=== PATIENT | male | born 1995 | race American Indian/Alaskan Native ===

== ENCOUNTER 2021-11-27 08:51 | Emergency (ER) | payer SELFPAY ==
[~2021-11-27] VITALS: Ht 180.3 cm; Wt 77.1 kg
[~2021-11-27 08:51] MED LIST: AZITHROMYCIN250 MG PO; IBUPROFEN600 MG PO; NORCO 5-325 TA1 EACH PO; NYQUIL D COLD295 ML PO; PREDNISONE20 MG PO; PROAIR HFA8.5 GM INH
[2021-11-27] MEDS ORDERED: OXYCODONE HCL5 MG PO (13:38)
[2021-11-27] MEDS ORDERED: ONDANSETRON ODT8 MG PO (13:38)
== END 2021-11-27 13:55 | disposition home or self-care (01) ==
LOC: ED 08:51
DX: K85.90 Acute pancreatitis without necrosis or infection, unspecified (principal); F10.10 Alcohol abuse, uncomplicated; F17.200 Nicotine dependence, unspecified, uncomplicated
CPT/HCPCS: 76705; 80053; 83690; 85025; 96374; 96375; 96376; 99284-25; J1170; J2405; J7030

== ENCOUNTER 2022-04-29 12:46 | Inpatient (IN) | payer OTHER ==
[~2022-04-29] VITALS: Ht 180.3 cm; Wt 73.5 kg
[~2022-04-29 12:46] MED LIST changes: +ONDANSETRON ODT8 MG PO; +OXYCODONE HCL5 MG PO
--- NOTE | 2022-04-29 20:00 | NUR ---
RECEIVED REPORT FROM DAY SHIFT RN. PT LAYING IN BED IN NO ACUTE DISTRESS. PT ASKING FOR PRN PAIN MEDS REPORTS PAIN A 8 TO RT UPPER QUAD. VSS RESP EVEN AND UNLABORED. CALL LIGHT WITHIN REACH WILL CONTINUE TO MONITOR.
--- NOTE | 2022-04-29 21:53 | NUR ---
Pt resting in bed in no acute distress. Resp even and unlabored, no s/sx of any distress. Call light within reach will continue to monitor.
--- NOTE | 2022-04-29 22:15 | NUR ---
PT COMPLAINING ABOUT PAIN AND NAUSEA. PT REPORTS PAIN A 8 TO ABDOMEN AND BACK . PRN PAIN MEDS AND ANTIEMTICS GIVEN. HOT BACK GIVEN WELL. CALL LIGHT WITHIN REACH WILL CONTINEU TO MONITOR.
--- NOTE | 2022-04-29 22:43 | NUR ---
PT DESATING INTO THE HIGH 80'S 88-89. PLACED ON A 2 L NC SATS AT 98% CALL LIGHT WITHIN REACH WILL CONTINUE TO MONITOR
--- NOTE | 2022-04-30 00:50 | NUR ---
PT ASKING FOR MORE PRN PAIN MEDS. REPORTS PAIN A 8 TO AB AND BACK . WILL MEDICATE WHEN ABLE TO . PT AWARE ITS NOT TIME YET BUT WILL TAKE IN WHEN WE ARE ABLE TO. HOT PACK AND ICE WATER GIVEN. NO S,SX OF ANY DISTRESS NOTED. CALL LIGHT WITHIN REACH WILL CONTINUE TO MONITOR
--- NOTE | 2022-04-30 01:20 | NUR ---
prn pain medication for 8/10 pain and new warm pack. call light within reach.
--- NOTE | 2022-04-30 05:01 | NUR ---
PT CONTINUES TO COMPLAIN OF PAIN , MEDICATING PRN PAIN MEDS AND ANITEMETIC. HOT PACK AND KPAD GIVEN TO PT. RESP EVEN AND UNLABORED. CALL LIGHT WITHIN REACH . WILL CONTINUE TO MONITOR
--- NOTE | 2022-04-30 07:40 | NUR ---
Dr Lorenzo rounded on Pt. The plan is to spread the IV Dilaudid more (Q6H) and transition to PO pain meds at some point. Pt might be transferring to the floor in the afternoon as well.
--- NOTE | 2022-04-30 08:18 | NUR ---
Pt is resting in bed, watching TV. He feels sleepy now. He stated he didn't sleep last night. Reports minimal abdominal pain. Dilaudid is not due for 2 more hours. Pt made aware. He said he'd go back to sleep.
--- NOTE | 2022-04-30 09:30 | NUR ---
Pt reported pain 8/10 - abdominal. No N/V. Oxi 5 mg given.
--- NOTE | 2022-04-30 11:16 | NUR ---
Pt is sleeping. IVF at 200 ml/hr. RA. No signs of distress. Will continue to monitor.
--- NOTE | 2022-04-30 12:15 | NUR ---
Pt tolerated lunch fine. No reports of N/V. Pain improved after Oxi. Pt stated that PO medication is lasting much longer than IV Dilaudid.
--- NOTE | 2022-04-30 13:00 | NUR ---
ASSESSMENT DONE. C/O PAIN 05/05. DID NOT REQUEST PAIN MEDICATION AT THIS TIME.
--- NOTE | 2022-04-30 14:00 | NUR ---
RESTING, NO DISTRESS NOTED. IVF PATEINT AND INFUSING AT 125 ML/HR.
--- NOTE | 2022-04-30 17:15 | NUR ---
CCU transfer. Dx: Pancreatitis. LR at 125 ml/hr. RA. Independent in the room. AOx4.
--- NOTE | 2022-04-30 17:22 | NUR ---
PATIENT SITTING UP IN BED FOR CLEAR LIQUID DINNER. UPDATE REPORT GIVEN TO MED-SURG. OXYCODONE 5 MG GIVEN FOR ABD PAIN.
--- NOTE | 2022-04-30 17:50 | NUR ---
PT TRANSFERRED OVER TO MED SURG ROOM 115, AMBULATED OVER WITH RN STANDBY, STEADY ON FEET AND TOLERATED WELL. PRIMARY RN AND APPLICATION TECHNICAL DESIGNER IN ROOM TO ACCEPT PT. FRESH WARM PACK GIVEN PER REQUEST.
--- NOTE | 2022-04-30 18:39 | NUR ---
IVF discontinued. Diet changed to low fat. Pt was able to order turkey box. Pain subsided (Oxi given at 17:14).
--- NOTE | 2022-04-30 19:37 | NUR ---
REPORT RECEIVED FROM DAY SHIFT RN. PT SITTING UP IN BED ALERT AND ORIENTED EATING SANDWICH. REPORTS PAIN IS TOLERABLE. SERVICE COORDINATOR IN ROOM TO SET UP FOR SHOWER. WHITE BOARD UPDATED. CALL LIGHT IN REACH.
--- NOTE | 2022-04-30 20:40 | NUR ---
EVENING ASSESSMENT COMPLETE. SCHEDULED MEDS ADMIN PER EMAR. PT REPORTS ABD PAIN /10. PRN FOR PAIN ADMIN. PT REPORTS NICOTINE CRAVINGS. NIO FOR NICOTINE LOZENGE PLACED. LOZENGE PROVIDED, PT DID NOT LIKE THE TASTE AND SPIT OUT. STATES HE WILL "WAIT TO SMOKE UNTIL TOMORROW". NICOTINE PATCH FELL OFF IN SHOWER. PT DENIES NAUSEA. WARM COMPRESS PROVIDED FOR ABD AND BACK. PT WITH NO S/SX OF ETOH WITHDRAWAL. PT DENIES QUESTIONS OR CONCERS. CALL LIGHT IN REACH.
--- NOTE | 2022-05-01 00:02 | NUR ---
PT RESTING IN BED WITH EYES CLOSED. RESPIRATIONS EVEN. CALL LIGHT IN REACH.
--- NOTE | 2022-05-01 02:07 | NUR ---
PT RESTING IN BED WITH EYES CLOSED. RESPIRATIONS EVEN. CALL LIGHT IN REACH.
--- NOTE | 2022-05-01 04:17 | NUR ---
PT RESTING WITH EYES CLOSED. RESPIRATIONS EVEN. URINAL EMPTIED OF 400 ML CLEAR YELLOW URINE.
--- NOTE | 2022-05-01 06:00 | NUR ---
CALL LIGHT ANSWERED. FRESH WATER PROVIDED. VS AND I&O COMPLETE. PT DENIES PAIN OR NAUSEA. NO S/SX ETOH WITHDRAWAL. DENIES NEEDS. CALL LIGHT IN REACH.
--- NOTE | 2022-05-01 07:20 | NUR ---
Bedside report received from DANO RN. Pt is awake, resting in bed. Pain is minimal. Pt reported he slept much better last night. No concerns at this time.
--- NOTE | 2022-05-01 08:22 | NUR ---
Pt will be discharging sometime this morning. Pt had medium size BM this am. No need for Miralax. Pain is WNL.
[2022-05-01] MEDS ORDERED: ONDANSETRON HCL4 MG PO (08:46)
--- NOTE | 2022-05-01 09:08 | NUR ---
MED REC COMPLETE
--- NOTE | 2022-05-02 19:04 | EKG ---
[facility] [address] [place] [address] Signed Sinus tachycardia Right atrial enlargement Borderline ECG No previous ECGs available Confirmed by EVAN OBRIEN MD ([id number]) on 05/02/2022 7:04:41 PM Electronically Signed By: EVAN OBRIEN MD 05/02/22 1904 PATIENT NAME: LIBERTYMANDY Electrocardiogram DATE OF : [birth year] PHYSICIAN: EVAN OBRIEN MD REPORT #: [id number] REPORT IS CONFIDENTIAL AND NOT TO BE RELEASED WITHOUT AUTHORIZATION
== END 2022-05-01 09:25 | disposition home or self-care (01) | DRG 439 ==
LOC: ED 12:46 → CCU 16:49 → MS 04-30 17:45
PROVIDERS: ADMIT Hospitalist; ATTEND Hospitalist
DX: K85.20 Alcohol induced acute pancreatitis without necrosis or infection (principal); F10.239 Alcohol dependence with withdrawal, unspecified; F17.210 Nicotine dependence, cigarettes, uncomplicated; Z20.822 Contact with and (suspected) exposure to COVID-19; Z71.6 Tobacco abuse counseling; M72.2 Plantar fascial fibromatosis
CPT/HCPCS: 36415; 80048; 80053; 81001; 83690; 85025; 87502; 93005; 93010; 96361; 96374; 96375; 96376; 99285-25; C9803; G0480; J1170; J1650; J2060; J2405; J2550; J3411; J7030; J7121; U0003

== ENCOUNTER 2022-06-27 04:53 | Inpatient (IN) | payer OTHER ==
[~2022-06-27] VITALS: Ht 177.8 cm; Wt 75.0 kg
[~2022-06-27 04:53] MED LIST changes: +ONDANSETRON HCL4 MG PO
[2022-06-27] MEDS ORDERED: FISH OIL 500 M1 EAC4 PO (09:04)
[2022-06-27] MEDS ORDERED: ARTHRITIS PAIN650 MG PO (09:05)
[2022-06-29] MEDS ORDERED: PROCHLORPERAZIN10 MG PO (12:23)
[2022-06-29] MEDS ORDERED: NICOTINE1 EAC2 TD (12:24)
[2022-06-29] MEDS ORDERED: OXYCODONE HCL5 MG PO (12:26)
[2022-06-29] MEDS ORDERED: FAMOTIDINE20 MG PO (12:26)
== END 2022-06-29 12:50 | disposition home or self-care (01) | DRG 439 ==
LOC: ED 04:53 → MS 04:55
PROVIDERS: ADMIT Internal Medicine; ATTEND Internal Medicine
DX: K85.20 Alcohol induced acute pancreatitis without necrosis or infection (principal); E87.1 Hypo-osmolality and hyponatremia; E83.42 Hypomagnesemia; F17.210 Nicotine dependence, cigarettes, uncomplicated; F10.20 Alcohol dependence, uncomplicated; E86.1 Hypovolemia; Z20.822 Contact with and (suspected) exposure to COVID-19; Z98.890 Other specified postprocedural states; Z79.899 Other long term (current) drug therapy
CPT/HCPCS: 36415; 80053; 81001; 83690; 83735; 85025; 87502; 99406; A9270; G0480; J0780; J1170; J1650; J2270; J2405; J2550; J3475; J7030; J7121; U0003

== ENCOUNTER 2022-12-14 17:00 | Emergency (ER) | payer OTHER ==
[~2022-12-14] VITALS: Ht 177.8 cm; Wt 74.8 kg
[~2022-12-14 17:00] MED LIST changes: +ARTHRITIS PAIN650 MG PO; +FAMOTIDINE20 MG PO; +FISH OIL 500 M1 EAC4 PO; +NICOTINE1 EAC2 TD; +PROCHLORPERAZIN10 MG PO
[2022-12-14] MEDS ORDERED: ONDANSETRON ODT8 MG PO (19:19)
[2022-12-14] MEDS ORDERED: OMEPRAZOLE20 MG PO (19:19)
== END 2022-12-14 19:35 | disposition home or self-care (01) ==
LOC: ED 17:00
DX: K29.20 Alcoholic gastritis without bleeding (principal); F10.90 Alcohol use, unspecified, uncomplicated; Y90.7 Blood alcohol level of 200-239 mg/100 ml; F17.200 Nicotine dependence, unspecified, uncomplicated; Z79.899 Other long term (current) drug therapy
CPT/HCPCS: 36415; 80053; 83690; 83735; 85025; 96361; 96374; 96375; 99284-25; A9270; C9113; G0480; J2405; J7030

== ENCOUNTER 2022-12-17 02:36 | Inpatient (IN) | payer OTHER ==
[~2022-12-17] VITALS: Ht 177.8 cm; Wt 81.1 kg
[~2022-12-17 02:36] MED LIST changes: +OMEPRAZOLE20 MG PO
--- OUTSIDE RECORDS SUMMARY | 2022-12-17 02:40 | XMS ---
PreManage Notification: MANDY KOENIG Security Channeler Runner Events No recent Security Events currently on file CRITERIA MET - [facility] - 2 Visits in 30 Days CARE PROVIDERS AURELIO BRICENO Physician Child Care Development Specialist Current PHONE: [phone] Emely has no Care Guidelines for this patient. Angela VISIT COUNT ([address] [facility] TOTAL 4 NOTE: Visits indicate total known visits. ED/C VISIT TRACKING (12 MO.) 12/17/2022 02:37 [facility] TYPE: Emergency COMPLAINT: - ABD PAIN 12/14/2022 17:01 [facility] TYPE: Emergency COMPLAINT: - RAPID HEART RATE DIAGNOSES: - Other director long term care (current) drug therapy - Alcoholic gastritis without bleeding - Palpitations - Blood alcohol level of 200-239 mg/100 ml - Alcohol use, unspecified, uncomplicated - Nicotine dependence, unspecified, uncomplicated 06/27/2022 04:54 [facility] TYPE: Emergency COMPLAINT: - ABD PAIN, VOMITING 04/29/2022 12:46 [facility] TYPE: Emergency COMPLAINT: - VOMITING INPATIENT VISIT TRACKING (12 MO.) 06/27/2022 10:58 [facility] TYPE: Medical Surgical COMPLAINT: - ACUTE PANCREATITIS, CHRONIC ALCOHOLISM DIAGNOSES: - Alcohol dependence, uncomplicated - Other director long term care (current) drug therapy - Alcohol induced acute pancreatitis without necrosis or infection - Alcohol dependence, uncomplicated - Hypo-osmolality and hyponatremia - Nicotine dependence, cigarettes, uncomplicated - Other group home (current) drug therapy - Abnormal levels of other serum enzymes - Contact with and (suspected) exposure to COVID-19 - Nicotine dependence, cigarettes, uncomplicated - Hypomagnesemia - Contact with and (suspected) exposure to COVID-19 - Hypovolemia - Other specified postprocedural states - Hypovolemia - Hypomagnesemia - Other specified postprocedural states - Hypo-osmolality and hyponatremia 04/29/2022 16:49 [facility] TYPE: Medical Surgical COMPLAINT: - PANCREATITIS DIAGNOSES: - Nicotine dependence, cigarettes, uncomplicated - Plantar fascial fibromatosis - Tobacco abuse counseling - Contact with and (suspected) exposure to COVID-19 - Contact with and (suspected) exposure to COVID-19 - Nicotine dependence, cigarettes, uncomplicated - Alcohol dependence with withdrawal, unspecified - Alcohol dependence with withdrawal, unspecified - Alcohol induced acute pancreatitis without necrosis or infection - Tobacco abuse counseling [email or web address]
--- NOTE | 2022-12-17 06:20 | NUR ---
bedside report from brett in ed, pt arrived to ms floor via wc. oriented to room and call light in reach. heat pack provided. iv site wnl, saline locked. cigarette health and safety advisor and cigarettes in sealed envelope. mouth swabs provided, pt npo. poc discussed, will monitor.
--- NOTE | 2022-12-17 06:51 | NUR ---
PT REPORTS HE SMOKES 1/2- A FULL PACK PER DAY AND WOULD LIKE A NICOTENE REPLACEMENT WHILE HERE AT THE HOSPITAL. NIO ORDER PLACED.
--- NOTE | 2022-12-17 07:06 | NUR ---
REPORT RECEIVED FROM MAINOR PAUL. PT RESTING IN BED WATCHING TV. PT REPORTS 8/10 ABDOMINAL PAIN AND REQUESTS PAIN MEDICATION. SEE MAR FOR MEDICATION GIVEN. PT DENIES NAUSEA. IV FLUIDS STARTED. PT DENEIS ADDITIONAL REQUESTS OR COMPLAINTS. CALL LIGHT WITHIN REACH. BED RAILS UP.
--- NOTE | 2022-12-17 07:45 | NUR ---
MORNING ASSESSESSMENT/ADMISSION ASSESSMENT DUE. PT RESTING IN BED ON RIGHT SIDE. PT REPORRTS PAIN HAS IMPROVED, NOW 5/10. PT REQUESTS NEW HEAT PACKS FOR ABDOMEN, PROVIDED. PT REPORTS MILD NAUSEA, DENIES NEED FOR NAUSE MEDICATIONS AT THIS TIME. BMAT LEVEL 4, PT STEADY ON FEET AND INDEPENDANT IN THE ROOM AT THIS TIME. PT ALERT AND OREINTED TO ALL. LUNG SOUNDS CLEAR. HEART TONES REGULAR. CIWA SCORE OF 0 AT THIS TIME. PT REPORTS A HISTORY OF TREMORS WITH ALCOHOL WITHDRAWL. EDUCATION DONE WITH PT REGARDING CONTACTING NURSING STAFF FOR ANY NEW S/S OF ALCOHOL WITH DRAWL. PTS HOEM CIGGARETTES PLACED IN THE SAFE. NICOTENE PATCH APPLIED. ABOMDEN SOFT BUT TENDER THROUGOUT. BOWEL TONES HYPOACTIVE. ABDOMEN MILDY DISTENDED PER PT. IV FLUIDS INFUSING. SKIN INTACT. PT DENIES ADDITIONAL REQUESTS OR COMPLAINTS AT THIS TIME CALL LIGHT WITHIN REACH. BED RAILS UP.
--- NOTE | 2022-12-17 08:52 | NUR ---
PT CALL LIGHT ON. PT REQUESTS PAIN MEDICATION FOR 8/10 PAIN TO ABDOMEN. SEE MAR FOR MEDICATION GIVEN. PT DENIES NAUSEA AT THIS TIME. ICE CHIPS PROVIDED PER PT REQUEST, AWARE AND STATES OK FOR PT TO HAVE ICE CHIPS FOR COMFORT. NO ADDITIONAL NEEDS AT THIS TIME. CALL LIGHT WITHIN REACH. BED RAILS UP.
--- NOTE | 2022-12-17 09:57 | NUR ---
MEDICATION DUE. IV PUMP ALARMING FREQUENTLY WITH DISTAL OCCULSION. PT REQUESTS IV BE MOVED TO A DIFFERENT LOCATION SO HE CAN BEND HIS ARM MORE FREELY. NEW IV STARTED PER PROTOCOL TO LEFT FORARM, BRISK BLOOD RETURN NOTED, THIAMINE INFUSION STARTED TO LEFT FORARM IV SITE. LEFT AC IV SALINE LOCKED, ALCOHOL CAP APPLIED. PT REPORTS 8/10 PAIN TO ABDOMEN AND REQUESTS ADDITIONAL PAIN MEDICATION, SEE MAR FOR MEDICAITON GIVEN. PT DENIES NAUSEA. NEW HEAT PACKS PROVIDED. PT DENIES ADDITIONAL REQUESTS OR COMPLAINTS. CALL LIGHT WITHIN REACH. BED RAILS UP.
--- NOTE | 2022-12-17 10:41 | NUR ---
HOULRY ROUNDING: PT RESTING ON RIGHT SIDE WITH EYES CLOSED, RESPIRATIONS EVEN AND UNLABORED. BED RAILS UP. CALL LIGHT WITHIN REACH. PT ALLOWED TO REST UNDESTURBED.
--- NOTE | 2022-12-17 11:44 | NUR ---
HOURLY ROUNDING: PT RESTING IN BED ON RIGHT SIDE WITH EYES CLOSED, RESPIRATIONS EVEN AND UNLABORED. BED RAILS UP. CALL LIGHT WITHIN REACH. PT ALLOWED TO REST.
--- NOTE | 2022-12-17 12:22 | NUR ---
HOURLY ROUDING: PT RESTING ON BACK WITH HEAD OF BED AT 20 DEGREES. PT REQUESTS PAIN MEDICATION FOR 8/10 PAIN IN ABDOMEN. PT ALSO REPORTS NAUSEA. CONFIRMED WIHT DR GREENBERG THAT ER BRIDGE ORDERS ARE OK TO GIVE. SEE MAR FOR MEDICATION GIVEN. PT DENIES ADDITIONAL REQUESTS OR COMPLAINTS STATING HE WOULD LIKE TO TAKE ANOTHER NAP. PT REPORTS GREATFULNESS FOR CARES. NO ADDITIONAL REQUESTS OR COMPLAINTS. CALL LIGHT WITHIN REACH. BED RAILS UP.
--- NOTE | 2022-12-17 13:37 | NUR ---
AFTERNOON ASSESSMENT DUE. THIS RN TO ROOM. PT RESTING IN BED WITH EYES CLOSED. AWAKENS TO MOVEMENT IN THE ROOM. PT REPORST 7/10 PAIN IN ABDOMEN AND REQUESTS ADDITIONAL PAIN MEDICATION, SEE MAR FOR MEDICATION GIVEN. PT REPORTS NAUSEA HAS RESOLVED. PT REQUESTS ADDITIONAL ICE CHIPS, PROVIDED, NPO STATUS EDUCATION DONE WITH PT WHO VERBALIZES UNDERSTANDING AND STATES HE WILL CONTINUE TO TAKE ICE CHIPS ONLY SLOWLY. BANANA BAG INFUSION COMPLETE. NO ADDITIONAL NEW FLUID ORDERS NOTED. ER BRIDGE ORDERED, MD CONSULTED, AWAITING NEW ORDERS. PT REMAINS ALERT AND ORIENTED TO ALL AND EXPRESSES GREATFULNESS FOR CARES. HEART TONES REGULAR. LUNG SOUNDS CLEAR. ABDOMEN SOFT AND CONTINUES TO BE TENDER THROUGHOUT. HEAT PACKS PROVIDED PER PT REQUEST. PT CONTINUES TO REPORT FLANK PAIN WELL. BOWEL TONES HYPO ACTIVE. PT UP TO STAND AT BEDSIDE AND VOIDS 350ML DARK YELLOW URINE. FORGOT TO COLLECT URINE SAMPLE, WILL COLLECT WITH NEXT VOID. SCD'S PLACED PER MD ORDER. CIWA 1 AT THIS TIME FOR VERY MINIMAL TREMORS. PT RETURNS TO RESTING WITH EYES CLOSED IN SUPINE POSITION. NO ADDITIONAL REQUESTS OR COMPLAINTS. CALL LIGHT WITHIN REACH. BED RAILS UP.
--- NOTE | 2022-12-17 14:36 | NUR ---
PURCHASING MANAGER/SALES REPORTS PT REQUESTS ADDITONAL PAIN MEDICATION. THIS RN TO ROOM. PT RESTING ON RIGHT SIDE WITH EYES CLOSED. PT AWAKENS TO MOVEMENT IN THE ROOM AND REPORTS 7/10 ABDOMINAL PAIN. SEE MAR FOR MEDICATION GIVEN. PT DENIES NAUSEA. NO ADDITIONAL REQEUSTS OR COMPLAINTS AT THIS TIME. PT CONTINUES RESTING ON RIGHT SIDE WITH EYES CLOSED. BED RAILS UP. CALL LIGHT WITHIN REACH.
--- NOTE | 2022-12-17 15:29 | NUR ---
HOURLY ROUNDING: PT RESTING ON RIGHT SIDE WITH EYES CLOSED. HEAD OF BED AT 10 DEGREES. RESPIRATIONS EVEN AND UNLABORED WITH MILD SNORING NOTED. BED RAILS UP. CALL LIGHT WITHIN REACH. PT ALLOWED TO REST UNDESTURBED.
--- NOTE | 2022-12-17 15:37 | NUR ---
PT ADMITTED TODAY FOR PANCRATITIS. PT UP WITH STAND BY ASSIST TO RESTROOM BUT MOSTLY IN BED THIS SHIFT. PT REMAINS NPO WITH IV HYDRATION, ICE CHIPS GIVEN FOR COMFORT. FREQUENT IV DILAUDID GIVEN FOR 5-8/10 ABDOMINAL PAIN. PRN ZOFRAN GIVEN FOR NAUSEA. BANABAG GIVEN THIS SHIFT. PT ALSO REPORTS FLANK PAIN. BOWEL TONES HYPOACTIVE. NICOTENE PATCH ORDERED AND APPLIED TO LEFT SHOULDER THI SSHIFT. CIWA SCORES OF 0-1, MINOR TREMORS STARTED THIS AFTERNOON. PT VOIDING MINMAL AMOUNTS ALTHOUGH QUANITTY SUFFICIENT. PT USES CALL LIGHT AND MAKES NEEDS KNOWN.
--- NOTE | 2022-12-17 16:54 | NUR ---
THIS RN TO ROOM TO CHECK ON PT. PT RESTING ON RIGHT SIDE WITH EYES CLOSED, RR OF 16. BED RAILS UP. CALL LIGHT WITHIN REACH. PT ALLOWED TO REST.
--- NOTE | 2022-12-17 17:20 | NUR ---
PT CALL LIGHT ON. PT REPORTS NAUSEA AND PAIN. THIS RN TO ROOM. PT VOMITING, 300ML CLEAR TO LIGHT YELLOW EMESIS. PT REPORTS "I THINK I JUST GOT UP TO FAST." CIWA OF 2. FOR TREMORS AND MILD NAUSEA. PT REPORTS 8/10 ABDOMINAL PAIN. SEE MAR FOR MEDICATION GIVEN. NEW IV FLUID BAG HUNG. PT ENCORUAGED TO GO MORE SLOWLY WITH ICE CHIPS. PT HAS HAD 1.5 CUPS OF ICE CHIPS SO FAR THIS SHIFT. PT DENIES ADDITONAL REQEUSTS OR COMPLANTS. VITAL SIGNS STABLE. BED RAILS UP. CALL LIGHT WITHIN REACH.
--- NOTE | 2022-12-17 18:33 | NUR ---
HOURLY ROUDING: PT RESTING ON RIGHT SIDE WITH EYES CLOSED. RESPIRATIONS EVEN AND UNLABORED. RR OF 16. BED RAILS UP. CALL LIGHT WITHIN REACH. PT ALLOWED TO REST.
--- NOTE | 2022-12-17 19:10 | NUR ---
RECEIVED REPORT FROM SOLANGE HAYWARD. PT RESTING IN BED W/EYES CLOSED. RESPIRATIONS ARE EVEN AND UNLABORED, NO SIGNS OF DISTRESS. CALL LIGHT WITHIN REACH.
--- NOTE | 2022-12-17 20:45 | NUR ---
IN PT ROOM D/T REQUEST FOR PAIN/NAUSEA MEDS. CALLED AND UPDATED D/T NO CURRENT ORDERS FOR ADDITIONAL NAUSEA MED, NEW ORDERS PLACED BY YARI BEGUM. PRN DILAUDID GIVEN FOR 7/10 PAIN IN ABDOMEN, AND PRN ZOFRAN GIVEN FOR NAUSEA (SEE EMAR). PT REPORTS NO N/T, DIZZINESS, SOB AT THIS TIME. UA COLLECTED AND SENT BY BIENVENIDO CARBONE RN. VSS. PT LUNGS ARE INSP. WHEEZE THROUGHOUT. PULSES PRESENT THROUGHOUT, NO EDEMA. BOWEL TONES ARE HYPOACTIVE X4, TENDER IN CENTER OF ABDOMEN, AND PT REPORTS ONLY MILD DISTENTION. ICE CHIPS PROVIDED, OK'ED BY . SKIN IS INTACT, NO SIGNS OF BREAKDOWN AT THIS TIME, PT IS ABLE TO MOVE SELF IN BED. PT A&O X4, WATCHING TV. CALL LIGHT WITHIN REACH, NO FURTHER NEEDS AT THIS TIME.
--- NOTE | 2022-12-17 22:26 | NUR ---
PT RESTING W/EYES CLOSED. RESPIRATIONS ARE EVEN AND UNLABORED, NO SIGNS OF DISTRESS. CALL LIGHT WITHIN REACH. PT APPEARS COMFORTABLE AT THIS TIME.
--- NOTE | 2022-12-17 23:25 | NUR ---
IN PT ROOM D/T BEEPING PUMP. NEW BAG OF CONTINUOUS FLUIDS, RATE CHANGED PER MD ORDERS. PT RESTING ON RT SIDE W/EYES CLOSED. RESPIRATION EVEN AND UNLABORED, NO SIGNS OF DISTRESS. CALL LIGHT WITHIN REACH.
--- NOTE | 2022-12-18 00:16 | NUR ---
ANSWERED PT CALL LIGHT D/T REPORT OF 7/10 ABD PAIN. PRN DILAUDID GIVEN (SEE EMAR). 2 HEATING PACKS PROVIDED FOR PT COMFORT. ICE CHIPS AT BEDSIDE. CALL LIGHT WITHIN REACH, NO FURTHER NEEDS AT THIS TIME.
--- NOTE | 2022-12-18 01:21 | NUR ---
PT RESTING W/EYES CLOSED. RESPIRATIONS ARE EVEN AND UNLABORED, NO SIGNS OF DISTRESS. CALL LIGHT WITHIN REACH. PT APPEARS COMFORTABLE AT THIS TIME.
--- NOTE | 2022-12-18 02:26 | NUR ---
2 WARM PACKS AND ICE CHIPS PROVIDED PER PATIENT'S REQUEST.
--- NOTE | 2022-12-18 03:35 | NUR ---
IN PT ROOM FOR SHOE PARTS MOLDER D/T PAIN REPORT OF 7/10 IN ABDOMEN. PRN DILAUDID GIVEN (SEE EMAR) AND PRN ZOFRAN GIVEN D/T NAUSEA (SEE EMAR). ASSESSMENT PERFORMED, NO ACUTE CHANGES FROM PREVIOUS ASSESSMENT. LUNGS REMAIN INSPIRATORY WHEEZE THROUGHOUT. PT REPORTS TENDERNESS AND NO NEW DISTENTION IN ABDOMEN. BOWEL TONES ACTIVE IN LOWER QUADRANTS AND HYPOACTIVE IN UPPER QUADRANTS. 2 HEATING PADS PROVIDED AT PT REQUEST AND HALF A CUP OF ICE CHIPS PROVIDED. BEDSIDE URINAL EMPTIED AND RECORDED. CALL LIGHT WITHIN REACH, PT STATES NO FURTHER NEEDS AT THIS TIME.
--- NOTE | 2022-12-18 05:39 | NUR ---
PT RESTING W/EYES CLOSED. RESPIRATIONS ARE EVEN AND UNLABORED, NO SIGNS OF DISTRESS. CALL LIGHT WITHIN REACH. PT APPEARS COMFORTABLE AT THIS TIME. IV FLUIDS INFUSING DIRECTED, SITE WNL.
--- NOTE | 2022-12-18 07:15 | NUR ---
REPORT RECEIVED FROM MAINOR VÁSQUEZ. PT RESTING IN BED IN SEMIFOWLER POSITION WITH EYES CLOSED. HEAD OF BED ELEVATED TO 25 DEGREES. RESPIRATIONS EVEN AND UNLABORED. BED RAILS UP. CALL LIGHT WITHIN REACH.
--- NOTE | 2022-12-18 07:48 | NUR ---
PT CALL LIGHT ON. MORNING ASSESSMENT AND MEDICATION DUE. PT REPORTS HE IS FEELIGN "MUCH BETTER" STATING "EVERY THING HAS DIMMED DOWN." PT REPORTS 6/10 ABDOMINAL PAIN AND STATES HE IS FEELING HUNGRY AND READY FOR CLEAR LIQUIDS. ICE CHIPS REFILED. PT REQUESTS PAIN MEDICATION. SEE MAR FOR MEDIATION GIVEN. AFTER PAIN MEDICATION ADMINISTRATION PT REPORTS PAIN DISIPATES COMPLETLY. PT REPORTS "BEFORE THE PAIN MEDICAITON WITH DULL IT BUT NOW IT TAKES IT AWAY." PT REMAINS ALERT AND ORIENTED TO ALL. HEART TONES REGULAR. INSPIRATORY WHEEZES NOTED THROUGHOUT LUNG TRIPATHI. OXGYEN SATRUATIONS REMAINS 96-100% ON ROOM AIR. EDUCATION DONE WITH PT REGARDING SMOKING CESATION. PT VERBLAIZES UNDERSTANDING AND SATES HE PLANS TO STOP SMOKING ONCE HOME. NICOTENE PATCH APPLIED. NO COUGH NOTED. ABDOMEN SOFT BUT REMIANS TENDER IN PLACE. FLANKS ALSO TENDER. PT REPORTS "LIGHT NAUSEA WHEN I MOVE TOO QUICK." PT REQUESTS SCD'S BE REMOVED. PT ENCOARUGED TO GET UP TO AMBULATE AND UP TO CHAIR. PT DECLINES AT THIS TIME BUT STATES HE WILL "LATER." BOWEL TONES ACTIVE IN LOWER QUDRANTS. HYPOACTIVE IN UPPER QUADRANTS. CIWA OF 1 FOR MILD NAUSEA. NO TREMORS NOTED. NO ADDITIONAL REQUESTS OR COMPLAINTS AT THIS TIME. FRESH HEAT PACKS PROVIDED. CALL LIGHT WITHIN REACH. BED RAILS UP.
--- NOTE | 2022-12-18 10:03 | NUR ---
THIS RN TO ROOM TO CHECK ON PT. PT REPORTS 3/10 PAIN IN ABDOMEN AND DENIES NAUSEA. PT REQUESTS TO ADVANCE TO CLEAR LIQUIDS. DR GREENBERG UPDATED. ORDERS GIVE TO PLACE ADVANCE DIET TOELRATED ORDER. PT ADVANCED TO CLEAR LIQUIDS. ORDERS ENTERED, REPEAT BACK PERFORMED. MEDICAITON GIVEN. PT UPDATED ON PLAN OF CARE. PT VERBALIZES UNDERSTANDING AND STATES HIS QUESTIONS HAVE BEEN ANSWERED. BROTH, 7-UP AND WATER PROVIDED. PT REPORTS HE WILL TAKE IT SLOWLY. NO ADDITIONAL REQUESTS OR COMPLAINTS. HEAT PACKS REHEATED. CALL LIGHT WITHIN REACH. BED RAILS UP.
--- NOTE | 2022-12-18 11:06 | NUR ---
THIS RN TO ROOM TO CHECK ON PT. PT REPORTS HE IS TOELRATING CLEAR LIQUIDS WELL. PT DENIES NAUSEA. PT REPORTS 4/10 ABDOMINAL AND FLANK PAIN. PT DENIES NEED FOR PAIN MEDICATION AT THIS TIME. PT REPORTS 3/10 HEADACHE, COOL CLOTH PROVIDED. DR. GREENBERG TO BEDSIDE FOR ROUNDS, UPDATED ON PT STATUS. NEW ORDERS PLACED. NO ADDITIONAL REQUESTS OR COMPLAINTS. CALL LIGHT WITHIN REACH. BED RAILS UP.
--- NOTE | 2022-12-18 12:03 | NUR ---
HOURLY ROUNDING: PT RESTING IN BED. ENCORUAGED TO GET UP TO CHAIR, DECLINES AT THIS TIME. PT TOLEARTING CLEAR LIQUIDS WITHOUT NAUSEA. PT REPORTS 5/10 ABDOMINAL PAIN AND 6/10 HEADACHE PAIN. SEE MAR FOR MEDICAITON GIVEN. CLEAR LIQUID TRAY DELIVERD FOR LUNCH. PT DENIES ADDITIONAL REQUESTS OR COMPLAINTS. CALL LIGHT WIHTIN REACH. BED RAILS UP.
--- NOTE | 2022-12-18 13:00 | NUR ---
Spoke with pt and he states he lives in a house with 3 steps. He denies any issues getting in or out of his home. He does not use any DME. Pt states he cont. to have issues with alcohol. He does not want to speak or have [facility] visit. He would like their card. Pt plans on dc to home when cleared medically. Pt diet has been upgraded to Clears. States he is feeling better. Plans on dc to home when cleared medically.
--- NOTE | 2022-12-18 13:42 | NUR ---
AFTERNOON ASSESSMENT DUE. PT TALKING WITH CASE MANAGEMENT, PT REPORTS HIS QUESTIONS HAVE ALL BEEN ANSWERED. PT REPORTS PAIN IS VERY WELL CONTROLLED AT THIS TIME. PT REPORTS 0/10 PAIN "UNLESS I HICCUP OR COUGH" WHEN PAIN IS A 3/10 IN ABDOMEN. PT DENIES NEED FOR ADDITONAL PAIN MEDICATION. PT DENIES FLANK PAIN EVEN WITH PALPATION. PT DENIES NASUEA. ABDOMEN SOFT AND REMAINS "A LITTLE" TENDER. BOWEL TONES ACTIVE THOUGHOUT. PT ALERT ADN OREINTED TO ALL. LUNGS SOUNDS CLEAR IN LOWER LOBES WITH INSPIRATORY WHEEZES NOTED IN UPPER LOBES. OXGYEN SATURATION REMAINS 100% ON ROOM AIR. HEART TONES REGULAR. PT CONTINUES TO DECLINE SCD'S. PT ADVANED TO FULL LIQUID DIET HE IS TOLERATING CLEAR LIQUIDS WELL. CIWA CURRENTLY OF 0. EXTENSIVE EDUCATION DONE WITH PT REGARDING LIVER DX AND ETOH, SMOKING CESATION, AND ALCOHOL USE. PT INTERACTIVE WITH CONVERSATION AND ASKS QUESTIONS. PT CATHRYN ADDITIONAL REQUESTS OR COMPLAINTS. CALL LIGHT WITHIN REACH. BED RAILS UP.
--- NOTE | 2022-12-18 14:20 | NUR ---
PT SITTING UP IN RM, RM DARKENED WITH TV ON.PT FRIENDLY, SAID HE IS FEELING MUCH BETTER. LOOKING FORWARD TO MASHED POTATOES FOR PM MEAL AND POSSIBLE DC SUNDAY. FEELS INFORMED AND GOOD ABOUT CARE HE IS RECEIVING. TOM ODONNELL AND DEBBIE. WILL FOLLOW
--- NOTE | 2022-12-18 15:04 | NUR ---
HOURLY ROUNDING: PT RESTING IN BED WITH HEAD OF BED ELEVATED. PT REPORTS 4/10 ABDOMINAL PAIN THAT CONTINUES TO BE WELL CONTROLLED. PT DENIES NAUSEA. PT DENIES NEED FOR ADDITONAL MEDICATIONS AT THIS TIME. URINAL EMPTIED OF 300ML CLEAR YELLOW URINE. NO ADDITONAL REQUESTS OR COMPLAINTS. CALL LIGHT WITHIN REACH. BED RAILS UP.
--- NOTE | 2022-12-18 16:04 | NUR ---
HOURLY ROUNDING. PT RESTING IN BED, PT REPORTS HE HAS BEEN UP AND AMBULATING IN THE ROOM. PT ENCOURAGED TO AMBULATE IN THE CESAR WELL. PT DENIES NAUSEA. PT REPORTS PAIN IS "CREAPING BACK UP." NOW 5 IN ABDOMEN. SEE MAR FOR MEDICATION GIVEN. ADDITIONAL JELLOW PROVIDED. URINAL EMPTIED OF 500ML CLEAR YELLOW URINE. PT DENIES ADDITIONAL REQUESTS OR COMPLAINTS. CALL LIGHT WITHIN REACH. BED RAILS UP.
--- NOTE | 2022-12-18 16:35 | NUR ---
PT HERE FOR PANCRATITIS. PT UP WITH STAND BY ASSIST TO RESTROOM AND IN ROOM THIS SHIFT. PT ADVANCED TO FULL LIQUID DIET. TOLERATING WELL. IV HYDRATION DC'D. PT TRANSISTIONED TO [facility] FOR PAIN, GIVEN FOR 4-5/10 PAIN THIS SHIFT. FLANK PAIN RESOLVED. ABDOMEN SOFT WITH MINOR TENDERNESS. BOWEL TONES ACTIVE. NICOTENE PATCH IN PLACE AND APPLIED TO LEFT SHOULDER THI SHIFT. CIWA SCORES OF 0-1 THIS SHIFT FOR MINOR NAUSEA. PT VOIDING QUANITTY SUFFICIENT. PT USES CALL LIGHT AND MAKES NEEDS KNOWN.
--- NOTE | 2022-12-18 18:51 | NUR ---
THIS RN TO ROOM TO CHECK ON PT. PT RESTING IN BED WATCHING TV. PT REPORTS 4/10 PAIN IN ABDOMEN AT THIS TIME. PT REPORTS THIS PAIN IS "FROM EATING" AND STATES IT IS TOLERABEL AND "GETTING BETTER" AT THIS TIME. PT DENIES NAUSEA. FRESH HEAT PACKS PROVIDED. ICE WATER REFILLED. VITAL SIGNS STABLE. NO ADDITONAL REQUESTS OR COMPLAINTS. CALL LIGHT WITHIN REACH.
--- NOTE | 2022-12-18 20:23 | NUR ---
PT CALLED FOR PAIN MEDICATION, ABD PAIN 5/10 STATES CRAMPING. GIVEN 2 TABS PERCOCET, DISCUSSED WALKING IN [facility] THIS EVENING TO HELP WITH GAS PAINS. PT REQUESTING WARM PACK, PROVIDED. PT DENIES OTHER NEEDS AT THSI TIME .
--- NOTE | 2022-12-18 20:37 | NUR ---
PT COMPLAINT OF NAUSEA, IMMEDIATELY AFTER PERCOCET ADMINISTRATION. PT PROVIDED WITH 4MG IV ZOFRAN PER EMAR. IV PATENT. PT PROVIDED WITH COOL CLOTH. PT DENIES OTHER NEEDS AT THIS TIME.
--- NOTE | 2022-12-19 04:08 | NUR ---
pt lying in bed resting quietly. resp even et unlabored able to make needs known. pt had no n/v at this time. pt continues to have pain give PRN meds and heating pad to help relieve pain med and heating were effective at this time. pt aox4 ambulatory. no acute distress noted at this time.
--- NOTE | 2022-12-19 07:15 | NUR ---
pt refused to get up to chair for meal. refused wash cloth to wash up. call light within reach no further tasks at this time
--- NOTE | 2022-12-19 07:15 | NUR ---
REPORT RECEIVED FROM MAINOR MLITON. PT RESTING IN BED ON LEFT SIDE WITH EYES CLOSED, RESPIRATIONS EVEN AND UNLABORED. BED RAILS UP. CALL LIGHT WITHIN REACH. PT ALLOWED TO REST UNDSTRUBED.
--- NOTE | 2022-12-19 08:50 | NUR ---
MORNING ASSESSMENT AND MEDICAITON DUE. PT SITTING UP IN BED EATING BREAKFAST. PT REPORTS HE IS TOLERATING REGULAR DIET WELL WITH NO NAUSEA AND "ONLY" 3/10 ABDOMINAL PAIN SO FAR. PT REPORTS PAIN IS "MOSTLY APURVA RUMBELING AROUND." PT REPORTS PASSING GAS AND STATES THAT MOST OF HIS PAIN IS NOW IN LOWER ABDOMEN RATHER THAN UPPER. PT REPORTS PAIN IS TOELERABLE AT THIS TIME AND HE DENIES NEED FOR ADDITIONAL PAIN MEDICAITON. PT ALERT AND OREINTED TO ALL. HEART TONES REGULAR. INSPIRATORY WHEEZES NOTED THROUGHOUT LUNG TRIPATHI. PT DENIES SHORTNESS OF BREATH. OXGYEN SATURATIONS OF 98-100% ON ROOM AIR. NO COUGH NOTED. ABODMEN SOFT AND NOW MINIMALLY TENDER. PT REPORTS MINMAL FLANK TENDERNESS WELL. PT REPORTS MILD ABDOMINAL DISTENTION IN "LOWER TOWARD MY BLADDER AREA" THAT HE ATTTRIBUTES TO GAS AND NEED FOR BOWEL MOVEMENT. PT REPORTS CONSTIPATION AND REQUESTS MEDICATION. NIO PLACED (SEE MAR). CIWA REMAINS 0. ADDIITONAL HEAT PACKS PROVIDED. NO ADDITIONAL REQUESTS OR COMPLAINTS. CALL LIGHT WITHIN REACH. BED RAILS UP.
--- NOTE | 2022-12-19 09:53 | NUR ---
HOURLY ROUNDING: MEDICAITON DUE. PT WATCHING TV. PT REPORTS PAIN REMAINS WELL CONTROLLED AND CONTINUES TO DENY NEED FOR PAIN MEDICATION. PT DENIES NAUSEA. DR. PAYNE STATES OK TO GIVE MIRALAX WITH PTS PANCREATITIS. SEE MAR FOR MEDICATION GIVEN. ADDITIONAL HEAT PACKS PROVIDED. PT DENIES ADDITIONAL REQUESTS OR COMPLAINTS. CALL LIGHT WITHIN REACH. BED RAILS UP.
--- NOTE | 2022-12-19 10:34 | NUR ---
MED REC COMPLETE
--- NOTE | 2022-12-19 11:05 | NUR ---
THIS RN TO ROOM TO CHECK ON PT. PT RECENTLY RECEIVED PAIN MEDICATION FOR 5/10 ABDOMINAL PAIN. PT REPORTS PASSING GAS. PT DENIES NAUSEA. HEAT PACKS REHEATED. PT DENIES ADDITONAL REQUESTS OR COMPLAINTS. CALL LIGHT WITHIN REACH. BED RAILS UP.
[2022-12-19] MEDS ORDERED: OXYCODONE-ACET1 EAC1 PO (12:16)
[2022-12-19] MEDS ORDERED: PROCHLORPERAZIN10 MG PO (12:17)
--- NOTE | 2022-12-19 12:26 | NUR ---
THIS RN TO ROOM TO CHECK ON PT. PT REPORTS HE IS READY TO GO HOME. MD TO BEDSIDE FOR ROUNDS AND DISCHARGE ORDERS PLACED. PT REPORTS 2/10 ABDOMINAL PAIN THAT IS WELL CONTROLLED. PT REQUESTS A WORK NOTE FOR CLEARANCE FROM WORK YESTERDAY. PT DENIES NAUSEA. IV DC'D PER PROTOCOL, GAUZE AND COBAN APPLIED. VITAL SIGNS STABLE. PT UP TO DRESS SELF. NO ASSISTANCE NEEDED. PT DENIES ADDITIONAL REQUESTS OR COMPLAINTS. CALL LIGHT WITHIN REACH.
--- NOTE | 2022-12-19 12:48 | NUR ---
DISCHRAGE INSTRUCTIONS REVIEWED WITH PT. PT VERBALIZES UNDERSTANDING OF INSTRUCTIONS, MEDICATIONS, AND FOLLOW UP. PT REPORTS HIS QUESTIONS HAVE ALL BEEN ANSWERED. PT AMBULATED FROM MED/SURG. NO ADDITIONAL REQUESTS OR CONCERNS.
== END 2022-12-19 12:50 | disposition home or self-care (01) | DRG 440 ==
LOC: ED 02:36 → MS 02:38
PROVIDERS: ADMIT Family Medicine; ATTEND Internal Medicine
PROC: HZ2ZZZZ Detoxification Services for Substance Abuse Treatment (ICD-10-PCS; principal; 2022-12-17)
DX: K85.20 Alcohol induced acute pancreatitis without necrosis or infection (principal); Z20.822 Contact with and (suspected) exposure to COVID-19; R11.2 Nausea with vomiting, unspecified; F17.210 Nicotine dependence, cigarettes, uncomplicated; Z98.890 Other specified postprocedural states; Z79.899 Other long term (current) drug therapy
CPT/HCPCS: 36415; 74177; 80053; 80061; 81003; 83690; 83735; 84100; 85025; 87502; C9803; J1170; J1790; J2270; J2405; J3411; J3475; J7030; J7121; Q9967; U0003

== ENCOUNTER 2023-01-24 11:57 | Emergency (ER) | payer OTHER ==
[~2023-01-24] VITALS: Ht 177.8 cm; Wt 80.7 kg
[~2023-01-24 11:57] MED LIST changes: +OXYCODONE-ACET1 EAC1 PO
--- NOTE | 2023-01-24 16:45 | EKG ---
[facility] [address] [place] [address] Signed Sinus tachycardia Otherwise normal ECG When compared with ECG of 29-APR-2022 13:00, No significant change was found Confirmed by EVAN OBRIEN MD ([id number]) on 01/24/2023 4:45:31 PM Electronically Signed By: EVAN OBRIEN MD 01/24/23 1645 PATIENT NAME: MANDY KOENIG Electrocardiogram DATE OF : [birth year] PHYSICIAN: EVAN OBRIEN MD REPORT #: [id number] REPORT IS CONFIDENTIAL AND NOT TO BE RELEASED WITHOUT AUTHORIZATION
== END 2023-01-24 16:04 | disposition home or self-care (01) ==
LOC: ED 11:57
DX: R07.89 Other chest pain (principal); F10.129 Alcohol abuse with intoxication, unspecified; Y90.3 Blood alcohol level of 60-79 mg/100 ml; E86.0 Dehydration; F17.200 Nicotine dependence, unspecified, uncomplicated
CPT/HCPCS: 36415; 71045; 80053; 81003; 83690; 84484; 85025; 93005; 93010; 96361; 96374; 96375; 99285-25; A9270; G0480; J2405; J7121

== ENCOUNTER 2023-07-02 20:06 | Inpatient (IN) | payer OTHER | END 2023-07-05 10:35 | disposition home or self-care (01) | DRG 440 | LOC: ED 20:06 → MS 23:59 | PROVIDERS: ADMIT Internal Medicine | PROC: HZ2ZZZZ Detoxification Services for Substance Abuse Treatment (ICD-10-PCS; principal; 2023-07-03) | DX: K85.90 Acute pancreatitis without necrosis or infection, unspecified (principal); F10.20 Alcohol dependence, uncomplicated; F17.200 Nicotine dependence, unspecified, uncomplicated; R74.8 Abnormal levels of other serum enzymes; F19.10 Other psychoactive substance abuse, uncomplicated; F12.90 Cannabis use, unspecified, uncomplicated; Z98.890 Other specified postprocedural states; Z79.899 Other long term (current) drug therapy; Y90.9 Presence of alcohol in blood, level not specified ==

== ENCOUNTER 2024-04-02 16:44 | Emergency (ER) | payer SELFPAY ==
[~2024-04-02] VITALS: Ht 177.8 cm; Wt 86.3 kg
[~2024-04-02 16:44] MED LIST changes: +HYDROCODON-ACE1 EA10 PO; +HYDROCODON-ACE1 EA11 PO; +PROVENTIL HFA6.7 GM INH; +TYLENOL325 MG PO
--- OUTSIDE RECORDS SUMMARY | 2024-04-02 17:37 | XMS ---
PreManage Notification: MANDY KOENIG Security Clinical Assoc Events 1 event(s) in the past 18 months Most recent security events: Elopement at [facility] 09/13/2023 11:27 - Patient eloped with IV in place. - Patient eloped before treatment completed. - Patient with suicidal and/or homicidal ideations eloped. Details: Patient LWBS CRITERIA MET - Group Notification CARE PROVIDERS -, [place]- Dentist: Cow Tender [facility] PHONE: [phone] Emely has no Care Guidelines for this patient. ESeb VISIT COUNT (12 MO.) [address] NOTE: Visits indicate total known visits. ED/UCC VISIT TRACKING (12 MO.) 04/02/2024 16:45 [facility] [place] TYPE: Emergency COMPLAINT: - ABDOMINAL PAIN 01/21/2024 23:58 [facility] [place] TYPE: Emergency COMPLAINT: - ABD PAIN 09/13/2023 11:27 [facility] [place] TYPE: Emergency COMPLAINT: - VOMITING, DEHYDRATED, WEAK, SHAKING 07/21/2023 17:06 [facility] [place] TYPE: Emergency COMPLAINT: - RT FOOT PAIN DIAGNOSES: - Nicotine dependence, unspecified, uncomplicated - Pain in right toe(s) - Striking against other stationary object, initial encounter - Unspecified sprain of right great toe, initial encounter 07/02/2023 20:06 [facility] [place] TYPE: Emergency COMPLAINT: - ABD PAIN 06/02/2023 10:51 [facility] [place] TYPE: Emergency COMPLAINT: - Abdominal Pain DIAGNOSES: - Diarrhea, unspecified - Nausea with vomiting, unspecified - Abdominal Pain - Vomiting INPATIENT VISIT TRACKING (12 MO.) 01/21/2024 23:59 [facility] [place] TYPE: Observation COMPLAINT: - ACUTE PANCREATITIS DIAGNOSES: - Acute pancreatitis without necrosis or infection, unspecified - Alcohol dependence, uncomplicated - Hypomagnesemia - Nicotine dependence, cigarettes, uncomplicated 07/02/2023 23:59 [facility] [place] TYPE: Medical Surgical COMPLAINT: - PANCREATITIS DIAGNOSES: - Abnormal levels of other serum enzymes - Abnormal levels of other serum enzymes - Acute pancreatitis without necrosis or infection, unspecified - Acute pancreatitis without necrosis or infection, unspecified - Alcohol dependence, uncomplicated - Alcohol dependence, uncomplicated - Alcohol use, unspecified, uncomplicated - Cannabis use, unspecified, uncomplicated - Cannabis use, unspecified, uncomplicated - Nicotine dependence, unspecified, uncomplicated - Nicotine dependence, unspecified, uncomplicated - Other alf (current) drug therapy - 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
[2024-04-02] MEDS ORDERED: ondansetron HCL 4 MG/2 ML VIAL IV ONE (18:15)
[2024-04-02 18:18] LABS: BILIRUBIN, URINE POSITIVE (negative); BLOOD/HGB, URINE NEGATIVE (Negative); KETONE, URINE NEGATIVE (Negative); LEUK ESTERASE, URINE NEGATIVE (negative); NITRITE, URINE NEGATIVE (negative)
[2024-04-02 18:36] LABS: BASOPHILS 1.1 % (0-2); EOSINOPHILS 1.4 % (0-6); HEMATOCRIT 47.4 % (35.0-50.0); HEMOGLOBIN 16.6 g/dL (12.0-18.0); LYMPHOCYTES 49.7 % (24-44); MCH 30.3 (27-36); MCV 86.7 fl (81-99); MONOCYTES 7.5 % (0-12); NEUTROPHILS 40.3 % (39-80); PLATELET COUNT 224 K/uL (140-440); RBC 5.47 M/ul (4.3-5.7); RDW 12.8 (10.5-15.0)
[2024-04-02 18:51] LABS: ALBUMIN/GLOBULIN RATIO 1.14 (1.1-2.4); ANION GAP 21.6 (7-21); BILIRUBIN, TOTAL 0.5 ng/dL (0.2-1.0); BUN/CREATININE RATIO 17.39 (6.0-28.6); CALCIUM 8.5 mg/dL (8.5-10.1); CREATININE, SERUM 0.92 mg/dL (0.70-1.30); POTASSIUM 3.6 mmol/L (3.5-5.1); PROTEIN, TOTAL 7.5 g/dL (6.4-8.2)
[2024-04-02] MEDS ORDERED: KETOROLAC TROMETHAMINE 30 MG/ML VIAL IV ONE (19:15)
[2024-04-02] MEDS ORDERED: FAMOTIDINE 20 MG/ 2 ML VIAL IV ONE (19:15)
[2024-04-02] MEDS ORDERED: LACTATED RINGER'S 1,000 ML IV ONE (19:15)
[2024-04-02 20:09] VITALS: BP 120/70
== END 2024-04-02 20:13 | disposition home or self-care (01) ==
LOC: ED 16:44
PROVIDERS: Emergency Medicine
DX: R10.12 Left upper quadrant pain (principal); F17.200 Nicotine dependence, unspecified, uncomplicated
CPT/HCPCS: 36415; 80053; 81003; 83690; 85025; J1885; J2405; J7121

== ENCOUNTER 2025-03-05 05:59 | Emergency (ER) | payer OTHER ==
[~2025-03-05] VITALS: Ht 177.8 cm; Wt 84.8 kg
[~2025-03-05 05:59] MED LIST changes: +CEPHALEXIN500 M1 PO; +ONDANSETRON ODT4 MG PO; +PROTONIX40 MG PO
--- OUTSIDE RECORDS SUMMARY | 2025-03-05 06:03 | XMS ---
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 - Patient eloped before treatment completed. - Patient with suicidal and/or homicidal ideations eloped. Details: Patient LWBS CRITERIA MET - Group Notification CARE PROVIDERS -, [facility] Dentist: Adoption Worker [facility] PHONE: [phone] [facility] Clinic[facility]Center: Primary Care [facility] PHONE: [phone] Emely has no Care Guidelines for this patient. E.D. VISIT COUNT (12 MO.) [address] [facility] TOTAL 4 NOTE: Visits indicate total known visits. ED/UCC VISIT TRACKING (12 MO.) 03/05/2025 05:59 [facility] [place] TYPE: Emergency COMPLAINT: - ABDOMINAL PAIN 10/09/2024 08:31 [facility] [place] TYPE: Emergency COMPLAINT: - ABDOMINAL PAIN 10/08/2024 15:12 [facility] [place] TYPE: Emergency COMPLAINT: - ABD PAIN DIAGNOSES: - Alcohol abuse with unspecified alcohol-induced disorder - Epigastric pain - Gastritis, unspecified, without bleeding - Nicotine dependence, unspecified, uncomplicated - Other specified local infections of the skin and subcutaneous tissue 04/02/2024 16:45 [facility] [place] TYPE: Emergency COMPLAINT: - ABDOMINAL PAIN DIAGNOSES: - Left upper quadrant pain - Nicotine dependence, unspecified, uncomplicated INPATIENT VISIT TRACKING (12 MO.) 10/09/2024 10:51 [facility] [place] TYPE: Medical Surgical COMPLAINT: - ACUTE PANCREATITIS DIAGNOSES: - Acute pancreatitis without necrosis or infection, unspecified - Alcohol induced acute pancreatitis without necrosis or infection - Alcohol use, unspecified, uncomplicated - Gastritis, unspecified, without bleeding - Nicotine dependence, cigarettes, uncomplicated - Other mcfp (current) drug therapy - Unspecified fall, initial encounter - Unspecified open wound, right lower leg, initial encounter [email or web address]
[2025-03-05] MEDS ORDERED: HYDROmorphone HCL 1 MG/ML SYR IV PRN (06:15)
[2025-03-05] MEDS ORDERED: FAMOTIDINE 20 MG/ 2 ML VIAL IV ONE (06:15)
[2025-03-05] MEDS ORDERED: ondansetron HCL 4 MG/2 ML VIAL IV ONE (06:15)
[2025-03-05] MEDS ORDERED: LORazepam 2 MG/ML VIAL IV ONE (06:15)
[2025-03-05] MEDS ORDERED: MULTIVITAMINS 10 ML,FOLIC ACID 1 MG,THIAMINE HCL 100 MG in SODIUM CHLORIDE 0.9% 1,000 ML IV ONE (06:15)
[2025-03-05 06:18] LABS: HEMATOCRIT 54.6 % (35.0-50.0); HEMOGLOBIN 19.1 g/dL (12.0-18.0); MCH 30.9 (27-36); MCV 88.4 fl (81-99); PLATELET COUNT 249 K/uL (140-440); RBC 6.18 M/ul (4.3-5.7); RDW 13.7 (10.5-15.0)
[2025-03-05 06:28] LABS: ALBUMIN 5.2 g/dL (3.4-5.0); ALBUMIN/GLOBULIN RATIO 1.18 (1.1-2.4); ANION GAP 32.9 (7-21); BILIRUBIN, TOTAL 2.8 mg/dL (0.2-1.0); BUN/CREATININE RATIO 15.5 (6.0-28.6); CALCIUM 10.3 mg/dL (8.5-10.1); CREATININE, SERUM 1.29 mg/dL (0.70-1.30); POTASSIUM 3.9 mmol/L (3.5-5.1); PROTEIN, TOTAL 9.6 g/dL (6.4-8.2)
[2025-03-05] MEDS ORDERED: LACTATED RINGER'S 1,000 ML IV ONE (06:30)
[2025-03-05 06:46] LABS: BANDS, MANUAL DIFF 4; LYMPHOCYTES, MANUAL DIFF 26; MONOCYTES, MANUAL DIFF 11; NEUTROPHILS, MANUAL DIFF 59
[2025-03-05 06:47] LABS: BASOPHILS, MANUAL DIFF 0; EOSINOPHILS, MANUAL DIFF 0
[2025-03-05 07:01] LABS: PH, VENOUS 7.342 (7.31-7.41)
[2025-03-05] MEDS ORDERED: SODIUM CHLORIDE 0.9% 1,000 ML IV PRN (07:15)
[2025-03-05 07:44] LABS: BILIRUBIN, URINE POSITIVE (negative); BLOOD/HGB, URINE NEGATIVE (Negative); KETONE, URINE >=80 (Negative); LEUK ESTERASE, URINE NEGATIVE (negative); NITRITE, URINE NEGATIVE (negative)
[2025-03-05 07:51] LABS: BACTERIA, URINE NONE SEEN /hpf (negative); CASTS, URINE HYALINE 3+ \\lpf; COLLECTION TYPE, URINE CLEAN CATCH; CRYSTALS, URINE NONE SEEN (0-1+); EPITHELIAL CELLS, URINE OCCASIONAL /lpf (0-1+); REFLEX CULTURE, URINE No (No); WHITE BLOOD CELLS, URINE 0-1 /HPF (0-5)
[2025-03-05] MEDS ORDERED: LORazepam 1 MG TAB PO ONE (08:00)
[2025-03-05] MEDS ORDERED: OLANZapine 10 MG TABDIS PO ONE (08:00)
[2025-03-05] MEDS ORDERED: ONDANSETRON ODT8 MG PO (10:30)
[2025-03-05] MEDS ORDERED: HYDROCODON-ACE1 EA10 PO (10:30)
[2025-03-05 10:41] VITALS: BP 133/102
== END 2025-03-05 10:43 | disposition home or self-care (01) ==
LOC: ED 05:59
PROVIDERS: Internal Medicine
DX: K85.90 Acute pancreatitis without necrosis or infection, unspecified (principal); F10.90 Alcohol use, unspecified, uncomplicated; F17.200 Nicotine dependence, unspecified, uncomplicated
CPT/HCPCS: 36415; 74177; 80053; 81001; 82803; 83690; 85025; 96361; 96375; 96376; 99284-25; J1171; J2060; J2405; J3411; J7030; J7121; Q9967

== ENCOUNTER 2025-08-03 17:33 | Emergency (ER) | payer OTHER ==
[~2025-08-03] VITALS: Ht 177.8 cm; Wt 83.0 kg
--- OUTSIDE RECORDS SUMMARY | 2025-08-03 17:40 | XMS ---
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 ESeb VISIT COUNT (12 MO.) 4 [facility] TOTAL 4 NOTE: Visits indicate total known visits. ED/C VISIT TRACKING (12 MO.) 08/03/2025 17:34 [facility] [place] TYPE: Emergency COMPLAINT: - ABDOM PAIN 03/05/2025 05:59 [facility] [place] TYPE: Emergency COMPLAINT: - ABDOMINAL PAIN DIAGNOSES: - Acute pancreatitis without necrosis or infection, unspecified - Alcohol use, unspecified, uncomplicated - Left upper quadrant pain - Nicotine dependence, unspecified, uncomplicated 10/09/2024 08:31 [facility] [place] TYPE: Emergency COMPLAINT: - ABDOMINAL PAIN 10/08/2024 15:12 [facility] [place] TYPE: Emergency COMPLAINT: - ABD PAIN DIAGNOSES: - Alcohol abuse with unspecified alcohol-induced disorder - Epigastric pain - Gastritis, unspecified, without bleeding - Nicotine dependence, unspecified, uncomplicated - Other specified local infections of the skin and subcutaneous tissue INPATIENT VISIT TRACKING (12 MO.) 10/09/2024 10:51 [facility] [place] TYPE: Medical Surgical COMPLAINT: - ACUTE PANCREATITIS DIAGNOSES: - Acute pancreatitis without necrosis or infection, unspecified - Alcohol induced acute pancreatitis without necrosis or infection - Alcohol use, unspecified, uncomplicated - Gastritis, unspecified, without bleeding - Nicotine dependence, cigarettes, uncomplicated - Other mcc (current) drug therapy - Unspecified fall, initial encounter - Unspecified open wound, right lower leg, initial encounter [email or web address]
[2025-08-03] MEDS ORDERED: KETOROLAC TROMETHAMINE 15 MG/ML VIAL IV ONE (18:00)
[2025-08-03] MEDS ORDERED: MORPHINE SULFATE 4 MG/ML VIAL IV PRN (18:00)
[2025-08-03] MEDS ORDERED: SODIUM CHLORIDE 0.9% 2,000 ML IV PRN (18:00)
[2025-08-03 18:13] LABS: BASOPHILS 0.4 % (0.2-1.2); EOSINOPHILS 0.4 % (0.8-7.0); LYMPHOCYTES 25.1 % (21.8-53.1); MCH 31.1 PG (25.7-32.2); MCHC 34.5 g/dL (32.3-36.5); MCV 89.9 fL (79.0-92.2); MONOCYTES 7.7 % (5.3-12.2); NEUTROPHILS 66.3 % (34.0-67.9); RBC 5.57 M/uL (4.63-6.08)
[2025-08-03 18:28] LABS: ALT (SGPT) 35.0 U/L (14-59); AST (SGOT) 29.0 U/L (15-37); GLOMERULAR FILTRATION RATE,EST 120.0 mL/min (>60); PROTEIN, TOTAL 7.5 g/dL (6.4-8.2); UREA NITROGEN 11.0 mg/dL (7-18)
[2025-08-03] MEDS ORDERED: HYDROCODON-ACE1 EA10 PO ×2 (20:26)
[2025-08-03] MEDS ORDERED: ONDANSETRON ODT8 MG PO ×2 (20:26)
[2025-08-03] MEDS ORDERED: ONDANSETRON 4 MG HOME.PACK SL ONE (20:30)
[2025-08-03] MEDS ORDERED: HYDROCODONE BIT/ACETAMINOPHEN 5/325 MG 1 TAB HOME.PACK PO ONE (20:30)
[2025-08-03 20:45] VITALS: BP 130/83
== END 2025-08-03 20:46 | disposition home or self-care (01) ==
LOC: ED 17:33
PROVIDERS: Emergency Medicine
DX: K85.80 Other acute pancreatitis without necrosis or infection (principal); F17.200 Nicotine dependence, unspecified, uncomplicated
CPT/HCPCS: 36415; 74177; 80053; 83690; 85025; 96361; 96374; 96375; 96376; 99284-25; A9270; J1885; J2270; J2405; J7030; Q9967

== ENCOUNTER 2025-08-04 12:57 | Inpatient (IN) | payer OTHER ==
[~2025-08-04] VITALS: Ht 177.8 cm; Wt 83.0 kg
--- OUTSIDE RECORDS SUMMARY | 2025-08-04 13:03 | XMS ---
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 Angela VISIT COUNT (12 MO.) 5 [facility] TOTAL 5 NOTE: Visits indicate total known visits. ED/C VISIT TRACKING (12 MO.) 08/04/2025 12:57 [facility] [place] TYPE: Emergency COMPLAINT: - ABDOMINAL PAIN 08/03/2025 17:34 [facility] [place] TYPE: Emergency COMPLAINT: - ABDOM PAIN 03/05/2025 05:[address] 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
[2025-08-04] MEDS ORDERED: SODIUM CHLORIDE 0.9% 2,000 ML IV ONE (14:30)
[2025-08-04] MEDS ORDERED: HYDROmorphone HCL 1 MG/ML SYR IV PRN ×2 (14:30→15:15)
[2025-08-04 14:35] LABS: BASOPHILS 0.3 % (0.2-1.2); EOSINOPHILS 0.5 % (0.8-7.0); LYMPHOCYTES 17.0 % (21.8-53.1); MCH 31.0 PG (25.7-32.2); MCHC 34.4 g/dL (32.3-36.5); MCV 90.2 fL (79.0-92.2); MONOCYTES 10.1 % (5.3-12.2); NEUTROPHILS 72.0 % (34.0-67.9); RBC 5.19 M/uL (4.63-6.08)
[2025-08-04 14:50] LABS: ALT (SGPT) 28.0 U/L (14-59); AST (SGOT) 18.0 U/L (15-37); GLOMERULAR FILTRATION RATE,EST 128.0 mL/min (>60); PROTEIN, TOTAL 7.1 g/dL (6.4-8.2); UREA NITROGEN 7.0 mg/dL (7-18)
[2025-08-04] MEDS ORDERED: PROCHLORPERAZINE EDISYLATE 10 MG/2 ML VIAL IV PRN (15:00)
[2025-08-04] MEDS ORDERED: ACETAMINOPHEN 325 MG TAB PO PRN (15:00)
[2025-08-04] MEDS ORDERED: LACTATED RINGER'S 1,000 ML IV SCH (15:00)
--- NOTE | 2025-08-04 16:11 | NUR ---
PT TO FLOOR WITH MAINOR PIMENTEL. PT AMBULATED TO BED ON OWN. RATES PAIN 9\10, GIVEN DILUADID PER ORDER. LOWERED BLINDS PER REQUEST. ADVISED TO CALL ATLEAST THE FIRST TIME HE NEEDS TO USE THE RESTROOM AND THEN WILL REEVALUATE FOR INDEPENDENCE. IVF INFUSING.
[2025-08-04 16:38] VITALS: BP 150/93
[2025-08-04 17:38] VITALS: BP 139/93
[2025-08-04] MEDS ORDERED: NICOTINE 14 MG/24 HR 1 EA TDSY TD SCH (17:49)
--- NOTE | 2025-08-04 18:40 | NUR ---
INTO ROOM TO ANSWER CALL LIGHT. PT REPORTS 9/10 PAIN IN ABDOMEN. PRN PAIN MEDICATION GIVEN. PT DENIES FURTHER NEEDS, CALL LIGHT IN REACH
[2025-08-04] MEDS ORDERED: KETOROLAC TROMETHAMINE 30 MG/ML VIAL IV PRN (18:45)
--- NOTE | 2025-08-04 19:15 | NUR ---
REPORT RECEIVED FROM VERNELL HAYWARD. PATIENT IN BED, EYES OPEN, CHEST RISE EVEN AND UNLABORED. CALL LIGHT AND PERSONAL BELONGINGS IN REACH OF PATIENT. PATIENT DENIES CONCERNS AT THIS TIME.
[2025-08-04 20:08] VITALS: BP 148/90
[2025-08-04 20:20] VITALS: BP 148/90
--- NOTE | 2025-08-04 20:28 | NUR ---
PATIENT IN BED WITH HOB RAISED, EYES CLOSED, CHEST RISE EVEN AND UNLABORED. ASSESMENT, VITAL SIGNS, AND MEWS COMPLETED. NEW BAG OF IV FLUID HUNG AND INFUSING WITHOUT DIFFICULTY. PATIENT DENIES CONCERNS AT THIS TIME.
[2025-08-04] MEDS ORDERED: MELATONIN 3 MG TAB PO PRN (21:00)
--- NOTE | 2025-08-04 21:27 | NUR ---
PATIENT IN BED WITH COVERS OVER HIS FACE, CHEST RISE EVEN AND UNLABORED. IV FLUID INFUSING WITHOUT DIFFICULTY. CALL LIGHT AND PERSONAL BELONGINGS IN REACH OF PATIENT. NO APPARENT NEEDS NOTED AT THIS TIME.
--- NOTE | 2025-08-04 22:29 | NUR ---
PATIENT CALL LIGHT ANSWERED. PATIENT REPORTS 9/10 PAIN. PRN PAIN MEDICATION ADMINISTERED PER PATIENT REQUEST. PATIENT IN BED, EYES OPEN, CHEST RISE EVEN AND UNLABORED. PATIENT DENIES FURTHER CONCERNS AT THIS TIME. CALL LIGHT AND PERSONAL BELONGINGS IN REACH OF PATIENT. IV FLUID INFUSING WITHOUT DIFFICULTY.
[2025-08-05] VITALS (10 sets, daily range): BP systolic 124–137; BP diastolic 72–89
[2025-08-05 00:47] LABS: BLOOD/HGB, URINE NEGATIVE (Negative); KETONE, URINE >=80 (Negative); LEUK ESTERASE, URINE NEGATIVE (negative); NITRITE, URINE NEGATIVE (negative)
--- NOTE | 2025-08-05 00:51 | NUR ---
PATIENT IN BED, EYES OPEN, CHEST RISE EVEN AND UNLABORED. PATIENT REPORTS 9/10 PAIN. PRN PAIN MEDICATION ADMINISTERED PER PATIENT REQUEST. CLEAN CATCH URINE SAMPLE OBTAINED AND SENT TO LAB PER ORDER. PATIENT DENIES FURTHER CONCERNS AT THIS TIME. CALL LIGHT AND PERSONAL BELONGINGS IN REACH OF PATIENT. IV FLUID INFUSING WITHOUT DIFFICULTY.
--- NOTE | 2025-08-05 01:49 | NUR ---
PATIENT IN BED, EYES CLOSED, CHEST RISE EVEN AND UNLABORED. NEW BAG OF IV FLUID STARTED, INFUSING WITHOUT DIFFICULTY. VITAL SIGNS, MEWS, AND I AND O COMPLETED. NO FURTHER NEEDS NOTED AT THIS TIME.
--- NOTE | 2025-08-05 03:07 | NUR ---
PATIENT CALL LIGHT ANSWERED. PATIENT REPORTS 9/10 PAIN. PRN PAIN MEDICATION ADMINISTERED. IV FLUID INFUSING WITHOUT DIFFICULTY. PATIENT DENIES CONCERNS AT THIS TIME. CALL LIGHT AND PERSONAL BELONGINGS IN REACH OF PATIENT.
[2025-08-05 05:55] LABS: ALT (SGPT) 18.0 U/L (14-59); AST (SGOT) 16.0 U/L (15-37); GLOMERULAR FILTRATION RATE,EST 130.0 mL/min (>60); PHOSPHORUS, INORGANIC 3.2 mg/dL (2.5-4.9); PROTEIN, TOTAL 6.3 g/dL (6.4-8.2); UREA NITROGEN 4.0 mg/dL (7-18)
[2025-08-05 05:55] LABS: BASOPHILS 0.3 % (0.2-1.2); EOSINOPHILS 0.5 % (0.8-7.0); LYMPHOCYTES 23.3 % (21.8-53.1); MCH 30.5 PG (25.7-32.2); MCHC 33.6 g/dL (32.3-36.5); MCV 90.8 fL (79.0-92.2); MONOCYTES 9.9 % (5.3-12.2); NEUTROPHILS 65.8 % (34.0-67.9); RBC 4.91 M/uL (4.63-6.08)
--- NOTE | 2025-08-05 06:00 | NUR ---
PER LAB, PATIENT REQUESTING PAIN MEDICATION. PRN PAIN MEDICATION ADMINISTERED PER PATIENT. REQUEST. VITAL SIGNS, I AND O, AND MEWS COMPLETED. ASSESMENT COMPLETED. IV FLUID INFUSING WITHOUT DIFFICULTY. CALL LIGHT AND PERSONAL BELONGINGS IN REACH OF PATIENT. PATIENT DENIES FURTHER CONCERNS AT THIS TIME.
--- NOTE | 2025-08-05 07:45 | NUR ---
RECIEVED REPORT FROM MAINOR ESPINOZA. PT AWAKE IN BED, REQUESTS PAIN MEDICATION WHEN AVAILABLE. PT STATES NO OTHER NEEDS AT THIS TIME, CALL LIGHT WITHIN REACH.
--- NOTE | 2025-08-05 08:25 | NUR ---
UR CLINICAL REVIEW: ED, MEETS INPT FOR PANCREATITIS LIPASE 335, IV FLUIDS, IV ANALGESICS, NPO SELF PAY INPT 08/04/2025 @ 1502 ORDER MATCHES REG NO AUTH REQUIRED FOR SELF-PAY PLAN TO DC TO HOME WHEN MEDICALLY READY 08/10/2025
[2025-08-05] MEDS ORDERED: NICOTINE POLACRILEX 2 MG GUM MM PRN (09:00)
[2025-08-05] MEDS ORDERED: ALBUTEROL SULFATE 0.083% 3 ML VIAL INH PRN (09:00)
[2025-08-05] MEDS ORDERED: MAGNESIUM SULFATE 2 GM/50 ML BAG IV ONE (09:00)
--- NOTE | 2025-08-05 09:40 | NUR ---
SPOKE WITH [facility] WITH [facility]IG[facility] AND STATES THEY ARE AWAITING DECISION FOR MEDICAID. APPLICATION WAS INITIATED 08/04/25
--- NOTE | 2025-08-05 10:37 | NUR ---
VISITED DURING SPIRITUAL CARE ROUNDS. PT APPEARED TO BE SLEEPING. DID NOT DISTURB.
[2025-08-05] MEDS ORDERED: PHARMACY RENAL DOSE ADJUSTMENT 1 DOSE MISC PO SCH (12:00)
--- NOTE | 2025-08-05 12:16 | NUR ---
PATIENT LIVES IN HOUSE WITH HIS MOTHER. HE HAS NO DME. HE DRIVES AT [employer]. PATIENT DENIES ANY FINANCIAL CONCERNS. STATES HE THINKS HIS MOM IS ON FOOD STAMPS BUT HE HAS NO DIFFICULTY HE "FIGURES IT OUT." OFFERED TO PROVIDE INFORMATION FOR PANTRIES, STATES HE DOES NOT NEED IT. DISCUSSED HIS ALCOHOL USE. STATES HE DOES NOT WANT ANY INFORMATION FOR ALCOHOL ABUSE HE FEELS HE HAS CUT BACK SIGNIFICANTLY AND DOESN'T FEEL THE NEED TO HAVE HELP. HE HAS NO PCP. PREFERS FEMALE PROVIDER BUT UNABLE TO LOCATE A FEMALE PROVIDER IN [facility] WHO IS ACCEPTING NEW PATIENTS WHEN CALLS MADE. FOLLOW-UP APPOINTMENT SCHEDULED WITH NILES LUKE AT [facility]. INFORMED THEM HIS MEDICAID IS STILL PENDING. NOTIFIED [facility] STRONG, [facility], THAT APPOINTMENT HAS BEEN MADE. NO OTHER CM NEEDS AT THIS TIME.
--- NOTE | 2025-08-05 13:10 | NUR ---
PT TOLERATES CLEAR LIQUID LUNCH TRAY W/O DIFFICULTY, STATES PAIN HAS DECREASED. PT REQUESTS TO TRY FULL LIQUIDS, PUDDING GIVEN WITH INSTRUCTION ON CONSUMING AT SLOW PACE, PT VERBALIZES UNDERSTANDING. PT STATES HE WOULD LIKE TO TRY A REGULAR DIET FOR DINNER, ORDER CHANGED. PT STATES NO FURTHER NEEDS AT THIS TIME, CALL LIGHT WITHIN REACH.
--- NOTE | 2025-08-05 14:42 | NUR ---
THIS RN CALLS DR. COATS TO UPDATE ON PT STATUS PT HAS TOLERATED FULL LIQUIDS W/O DIFFICULTY. MD STATES TO DC FLUIDS WELL DC IV DILAUDED. ORDERS DC'D, NO NEW ORDERS AT THIS TIME. STATES PT IS OKAY TO ADVANCE TO REGULAR DIET.
--- NOTE | 2025-08-05 16:10 | NUR ---
PT RESTING IN BED WITH EYES CLOSED UNLABORED BREATHING. CALL LIGHT IN REACH, BED LOWERED. NO NEEDS AT THIS TIME.
--- NOTE | 2025-08-05 18:01 | NUR ---
PATIENT HAS EATEN SMALL AMOUNT OF REGULAR DIET TRAY. STATES NO NAUSEA BY 6/10 ABDOMINAL PAIN. EDUCATION ON ADVANCING DIET SLOWLY. PT REQUESTS NEXT AVAILABLE PAIN MEDICATIONS. CALL LIGHT WITHIN REACH.
--- NOTE | 2025-08-05 18:41 | NUR ---
PT RECEIVED PRN PAIN MED. SHOWER SUPPLIES GIVEN, PT SHOWERING INDEPENDENTLY, NO OTHER NEEDS AT THIS TIME. PT SHOWED HOW TO PULL BLUE CORD IF THEY NEED SOMETHING WHILE SHOWERING.
--- NOTE | 2025-08-05 19:40 | NUR ---
REPORT RECEIVED FROM YESENIA HAYWARD. PATIENT IN BED WITH HOB RAISED, EYES OPEN, CHEST RISE EVEN AND UNLABORED. CALL LIGHT AND PERSONAL BELONGINGS IN REACH OF PATIENT. PATIENT DENIES CONCERNS AT THIS TIME.
--- NOTE | 2025-08-05 21:01 | NUR ---
PATIENT SITTING UP IN BED, EYES OPEN, CHEST RISE EVEN AND UNLABORED. ASSESMENT, VITAL SIGNS, I AND O AND MEWS COMPLETED. PRN MELATONIN ADMINISTERED PER PATIENT REQUEST. PATIENT DENIES FURTHER CONCERNS AT THIS TIME. CALL LIGHT AND PERSONAL BELONGINGS IN REACH OF PATIENT.
--- NOTE | 2025-08-05 22:52 | NUR ---
PATIENT IN BED, EYES CLOSED, CHEST RISE EVEN AND UNLABORED. CALL LIGHT AND PERSONAL BELONGINGS IN REACH OF PATIENT. NO APPARENT NEEDS NOTED AT THIS TIME.
--- NOTE | 2025-08-05 23:30 | NUR ---
PATIENT SITTING UPRIGHT IN BED. PATIENT REPORTS 9/10 PAIN. PATIENT REPORTS HE IS STILL PASSING GAS, DENIES NAUSEA OR ABDOMINAL DISTENSION. GI REASSESMENT COMPLETED. PRN PAIN MEDICATION ADMINISTERED. PATIENT DENIES FURTHER CONCERNS AT THIS TIME. CALL LIGHT AND PERSONAL BELONGINGS IN REACH OF PATIENT.
--- NOTE | 2025-08-06 00:13 | NUR ---
PATIENT IN BED, EYES CLOSED, CHEST RISE EVEN AND UNABORED. PATIENT APPEARS TO BE RESTING IN BED. CALL LIGHT AND PERSONAL BELONGINGS IN REACH OF PATIENT. NO APPARENT NEEDS NOTED AT THIS ITME.
--- NOTE | 2025-08-06 01:38 | NUR ---
PATIENT IN BED, EYES OPEN, CHEST RISE EVEN AND UNLABORED. PATIENT REPORTS 6/10 PAIN. PRN PAIN MEDICATION PROVIDED AT PATIENT REQUEST. HEAT PACK PROVIDED AT PATIENT REQUEST. PATIENT DENIES FURTHER CONCERNS AT THIS TIME. CALL LIGHT AND PERSONAL BELONGINGS IN REACH OF PATIENT.
--- NOTE | 2025-08-06 03:31 | NUR ---
PATIENT IN BED, EYES CLOSED, CHEST RISE EVEN AND UNLABORED. CALL LIGHT AND PERSONAL BELONGINGS IN REACH OF PATIENT. NO APPARENT NEEDS NOTED AT THIS TIME.
--- NOTE | 2025-08-06 05:08 | NUR ---
PATIENT IN BED WITH HOB RAISED, EYES OPEN, CHEST RISE EVEN AND UNLABORED. PATIENT PROVIDED WITH HEAT PACK PER HIS REQUEST. PATIENT DENIES FURTHER CONCERNS AT THIS TIME. CALL LIGHT AND PERSONAL BELONGINGS IN REACH OF PATIENT.
[2025-08-06 05:17] LABS: BASOPHILS 0.8 % (0.2-1.2); EOSINOPHILS 3.6 % (0.8-7.0); LYMPHOCYTES 40.1 % (21.8-53.1); MCH 30.6 PG (25.7-32.2); MCHC 33.9 g/dL (32.3-36.5); MCV 90.4 fL (79.0-92.2); MONOCYTES 12.9 % (5.3-12.2); NEUTROPHILS 42.6 % (34.0-67.9); RBC 4.47 M/uL (4.63-6.08)
[2025-08-06 05:26] LABS: GLOMERULAR FILTRATION RATE,EST 131.0 mL/min (>60); UREA NITROGEN 3.0 mg/dL (7-18)
[2025-08-06 05:46] VITALS: BP 131/93
[2025-08-06 05:51] VITALS: BP 131/93
--- NOTE | 2025-08-06 06:00 | NUR ---
PATIENT IN BED WITH HOB RAISED, EYES OPEN, CHEST RISE EVEN AND UNLABORED. CALL LIGHT AND PERSONAL BELONGINGS IN REACH OF PATIENT. VITAL SIGNS, MEWS, ASSESMENT, AND I AND O COMPLETED. PATIENT PROVIDED WITH HEAT PACK AT HIS REQUEST. PATIENT DENIES FURTHER CONCERNS AT THIS TIME.
--- NOTE | 2025-08-06 07:09 | NUR ---
Pt report received from MAINOR Nayak
[2025-08-06] MEDS ORDERED: IBUPROFEN 600 MG TAB PO PRN (08:00)
--- NOTE | 2025-08-06 08:03 | NUR ---
PT RESTING IN BED, UP IN BED EATING BREAKFAST. PATIENT REQUESTING TO TAKE SHOWER, C/O 03/05 PAIN TO ABDOMEN, REQUESTED SOME TYLENOL. PATIENT STATES HIS PAIN IS VERY TOLERABLE AND WOULD LIKE TO DISCHARGE HOME TODAY, FEELS HE CAN MANAGE AT THIS TIME AT HOME WITH SOME OTC TYLENOL. IV REMOVED, PT SHOWER SETUP AT THIS TIME. ALL PATIENT CARE NEEDS MET AT THIS TIME, BREAKFAST TRAY REMOVED. PT ADVISED TO CALL IF HE HAS ANY OTHER NEEDS.
--- NOTE | 2025-08-06 08:50 | NUR ---
Spoke with Wade. He is wanting to dc as his ride will be here shortly. He denies any needs. He declines a card for [facility] and feels he has successfully cut back on his own. He is ready for dc now. Awaiting his ride.
--- NOTE | 2025-08-06 08:51 | NUR ---
CALL LIGHT ON, PT SITTING ON BED DRESSED/SHOWERED. PT STATES HE ONLY HAS A RIDE THIS MORNING, THEY HAVE TO BE AT WORK BY 10AM. MD INFORMED. PT REQUESTING NOTE FOR WORK FOR THE TIME BEING HOSPITALIZED. NOTE ON MD DESK TO FILL OUT FOR PATIENT.
[2025-08-06 09:07] VITALS: BP 137/93
[2025-08-06 09:18] VITALS: BP 137/93
== END 2025-08-06 09:15 | disposition home or self-care (01) | DRG 440 ==
LOC: ED 12:57 → MS 15:02
PROVIDERS: Emergency Medicine; ADMIT Student in an Organized Health Care Education/Training Program; ATTEND Student in an Organized Health Care Education/Training Program
DX: K85.20 Alcohol induced acute pancreatitis without necrosis or infection (principal); F17.200 Nicotine dependence, unspecified, uncomplicated; E87.6 Hypokalemia; D69.6 Thrombocytopenia, unspecified; F10.90 Alcohol use, unspecified, uncomplicated
CPT/HCPCS: 36415; 80048; 80053; 81003; 83690; 83735; 84100; 85025; 94640; 94799; A9270; J1171; J1885; J2405; J3475; J7030; J7121